=== PATIENT | female | born 1970 | race Two or more races ===

== ENCOUNTER 2020-08-19 21:58 | Emergency (ER) | payer MEDICAID ==
[~2020-08-19] VITALS: Ht 165.1 cm; Wt 69.0 kg
[2020-08-19] MEDS ORDERED: IBUPROFEN 600MG TABLET PO ONE (23:30)
[2020-08-20 02:15] VITALS: BP 137/80
== END 2020-08-20 02:15 | disposition home or self-care (01) ==
LOC: ER 21:58
DX: M25.522 Pain in left elbow (principal); M25.511 Pain in right shoulder; M25.512 Pain in left shoulder; Z98.890 Other specified postprocedural states; Z90.710 Acquired absence of both cervix and uterus
CPT/HCPCS: 72070; 73030; 73080; 99284